=== PATIENT | female | born 1965 | race Caucasian/White ===

== ENCOUNTER 2019-08-25 13:51 | Emergency (ER) | payer OTHER ==
[~2019-08-25] VITALS: Ht 167.6 cm; Wt 93.0 kg
== END 2019-08-25 17:04 | disposition home or self-care (01) ==
LOC: ED 13:51
DX: S80.01XA Contusion of right knee, initial encounter (principal); W17.89XA Other fall from one level to another, initial encounter
CPT/HCPCS: 73560; 90471; 90715; 99283-25

== ENCOUNTER 2019-11-04 08:27 | Day surgery (SDC) | payer OTHER ==
[~2019-11-04] VITALS: Ht 167.6 cm; Wt 94.8 kg
[~2019-11-04 08:27] MED LIST: SLEEP AID25 M1 PO
[2019-11-04] MEDS ORDERED: POLY-VITAMIN1 EACH PO (08:46)
[2019-11-04] MEDS ORDERED: ADDAPRIN200 MG PO (08:46)
--- NOTE | 2019-11-04 09:58 | NUR ---
11/04/19 09 Raquel Gramajo 0933 PT ARRIVED IN PACU SLEEPY WITH NO C/O'S. ABD SOFT. 45 AWAKENS TO VERBAL STIMULI AND FALLS BACK TO SLEEP. 954 TAKING SIPS OF WATER.
--- NOTE | 2019-11-05 06:12 | OR ---
[facility] [address], [place] [address] Signed DATE OF OPERATION: 11/04/2019 SURGEON: Tomasz Eisenberg MD PREOPERATIVE DIAGNOSES: 1. Paternal aunts x3 with colon cancer. 2. Paternal uncle with colon polyps. 3. Brothers x3 with colon polyps. POSTOPERATIVE DIAGNOSIS: Unremarkable colonoscopy. PROCEDURE: Colonoscopy without biopsy. ESTIMATED BLOOD LOSS: None. INDICATIONS: Crow is a 53-year-old obese female, asked to see me for her initial colonoscopy. She has a family history as listed above. I have given Crow a pamphlet in the office on colonoscopy. She understands the nature of the test along with the risks including, but not limited to, gas bloating, crampy abdominal pain, bleeding, perforation requiring surgery, and missed diagnosis. She also understands the need for IV conscious sedation. She had expressed her understanding and wished to proceed. DESCRIPTION OF PROCEDURE: Crow was taken into our endoscopy suite and placed in the left lateral decubitus position. She was given 7 mg of Versed and 150 mcg of fentanyl to cover her case. A digital rectal exam was performed and this was unremarkable. The adult colonoscope was introduced and advanced under direct visualization of the camera. Crow's prep was quite good. She has somewhat long redundant colon. It was buckling some in the left colon. It took some abdominal compression and additional sedation in order to get the scope over to the ileocecal valve. We had taken pictures throughout for photodocumentation. The scope was slowly withdrawn. She had no pathology throughout the entire colon or rectum. Upon retroflexion of the scope, there was no additional pathology noted above the anal canal. After this, the gas was suctioned out and the colonoscope removed. Crow tolerated the procedure quite well. RECOMMENDATIONS: Electronically Signed By: TOMASZ EISENBERG MD 11/05/19 0612 PATIENT NAME: CROW LEBLANC OPERATIVE REPORT DATE OF : 65 REPORT #: [id number] PHYSICIAN: TOMASZ EISENBERG MD PCP: NNAMDI MALDONADO MD REPORT IS CONFIDENTIAL AND NOT TO BE RELEASED WITHOUT AUTHORIZATION [facility] [address] [place] [id number] Signed Crow can return in 5 years for a repeat colonoscopy due to her family history. Tomasz Eisenberg MD ALB/MODL /[id number] cc: MD Nnamdi Lora MD Copies: TOMASZ EISENBERG MD, ROBERT D DMD ~ Electronically Signed By: TOMASZ EISENBERG MD 11/05/19 0612 PATIENT NAME: CROW LEBLANC OPERATIVE REPORT DATE OF : 65 REPORT #: [id number] PHYSICIAN: TOMASZ EISENBERG MD PCP: NNAMDI MALDONADO MD REPORT IS CONFIDENTIAL AND NOT TO BE RELEASED WITHOUT AUTHORIZATION
== END 2019-11-04 10:11 | disposition home or self-care (01) ==
LOC: OPS 08:27 → DS 08:29 → OPS 09:45
PROVIDERS: Colon & Rectal Surgery
PROC: 0DJD8ZZ Inspection of Lower Intestinal Tract, Via Natural or Artificial Opening Endoscopic (ICD-10-PCS; principal; 2019-11-04 09:45)
DX: Z12.11 Encounter for screening for malignant neoplasm of colon (principal); G47.00 Insomnia, unspecified; Z80.0 Family history of malignant neoplasm of digestive organs; Z83.71 Family history of colonic polyps; Z79.899 Other long term (current) drug therapy
CPT/HCPCS: 99153; G0500; J2250; J3010; J7121

== ENCOUNTER 2022-06-08 07:45 | Emergency (ER) | payer OTHER ==
[~2022-06-08] VITALS: Ht 167.6 cm; Wt 81.7 kg
[~2022-06-08 07:45] MED LIST changes: +ADDAPRIN200 MG PO; +POLY-VITAMIN1 EACH PO
== END 2022-06-08 08:49 | disposition home or self-care (01) ==
LOC: ED 07:45
DX: S93.505A Unspecified sprain of left lesser toe(s), initial encounter (principal); W23.0XXA Caught, crushed, jammed, or pinched between moving objects, initial encounter
CPT/HCPCS: 73630; 99283-25